=== PATIENT | female | born 1975 | race Caucasian/White ===

== ENCOUNTER 2018-10-05 12:24 | Emergency (ER) | payer BC ==
[2018-10-05 12:43] VITALS: O2SAT 100
[2018-10-05] MEDS ORDERED: TORAdol 30 mg Injection IV ONE (12:49)
[2018-10-05] MEDS ORDERED: Sodium Chloride 0.9% 1000 ML 1,000 ML IV STA (12:49)
--- NOTE | 2018-10-05 12:58 | ERPHSYRPT ---
- History of Present Illness Time Seen by Provider: 10/05/18 12:45 Historian: patient Exam Limitations: no limitations Patient Subjective Stated Complaint: left flank pain that radiates to the front , left chest pain that radiates down to the lower abdomen Triage Nursing Assessment: Pt c/o of pain in the left flank that radiates around to the upper and lower left abdomen, pain in upper left chest that radiates down to her left side of abdomen, rates pain 8/10, denies vomiting, has nausea, denies urination or bowel problems, bowel sounds heard in all 4 quadrants, pain with palpatation Physician History: 43-year-old white female arrives with complaint of left flank pain radiating to the left lower abdominal quadrant symptoms off and on for a week also states today she is having sharp pains in her left upper chest radiating down her left side to her abdomen into her left arm. No shortness of breath, positive nausea no vomiting no urinary symptoms. 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 Social history former smoker occasional alcohol denies illicit drugs. Timing/Duration: week(s) (abdominal pain for a week, sharp chest pain since today) Activities at Onset: none Quality: sharpness, stabbing Abdominal Pain Onset Location: LUQ, flank (Left flank), other (left chest radiating to abdomen and left arm) Pain Radiation: LLQ, flank (left flank) Severity of Pain-Max: moderate Severity of Pain-Current: moderate Modifying Factors: Improves With: nothing Associated Symptoms: back (pain left flank), chest pain (pain sharp worse with breathing left chest radiating to left abdomen and left arm), nausea, No diaphoresis, No diarrhea, No fever/chills, No fatigue, No heartburn, No loss of appetite, No neck pain, No rash, No shortness of breath, No syncope, No vomiting , No weakness Previous symptoms: no prior history Allergies/Adverse Reactions: codeine [Codeine] Allergy (Verified 10/05/18 12:45) Nausea Hx Tetanus, Diphtheria Vaccination/Date Given: Yes Hx Influenza Vaccination/Date Given: No Hx Pneumococcal Vaccination/Date Given: No - Review of Systems Constitutional: No Fever, No Chills Eyes: No Symptoms Ears, Nose, & Throat: No Symptoms Respiratory: No Cough, No Dyspnea Cardiac: Chest Pain (sharp left chest pain radiating to left abdomen and left arm worse with breathing) Abdominal/Gastrointestinal: Abdominal Pain (Left flank pain radiating to left abdomen ), Nausea, No Vomiting, No Diarrhea, No Constipation, No Hematemesis, No Hematochezia, No Melena, No Dysphagia, No Appetite Changes Genitourinary Symptoms: No Dysuria Musculoskeletal: Back Pain (left flank pain), No Arthralgias, No Neck Pain, No Deformity, No Fall, No Injury, No Joint Redness, No Joint Pain, No Joint Swelling, No Myalgias, No Other Skin: No Rash Neurological: No Dizziness, No Focal Weakness, No Sensory Changes Psychological: No Symptoms Endocrine: No Symptoms Hematologic/Lymphatic: No Symptoms All Other Systems: Reviewed and Negative - Past Medical History Pertinent Past Medical History: Yes ENT History: Other Cardiac History: No Pertinent History Respiratory History: No Pertinent History Endocrine Medical History: No Pertinent History Musculoskeletal History: No Pertinent History GI Medical History: No Pertinent History History: No Pertinent History Psycho-Social History: No Pertinent History Female Reproductive Disorders: Endometriosis Other Medical History: 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 laparoscopy. nose surgery. bilateral ear surgery- tubes - Social History Smoking Status: Former smoker Exposure to second hand smoke: Yes Drug Use: none Patient Lives Alone: No Significant Family History: AORTIC ANEURYSMS - Female History Hx Now: No (tubal) - Nursing Vital Signs Nursing Vital Signs: Initial Vital Signs Temperature 97.6 F 10/05/18 12:29 Pulse Rate 69 10/05/18 12:29 Blood Pressure 114/81 10/05/18 12:29 O2 Sat by Pulse Oximetry 100 10/05/18 12:29 Pain Scale Pain Intensity 8 - Physical Exam General Appearance: no apparent distress, alert Eye Exam: PERRL/EOMI, eyes nml inspection Ears, Nose, Throat Exam: normal ENT inspection, pharynx normal, moist mucous membranes Neck Exam: normal inspection, non-tender, supple, full range of motion Respiratory Exam: normal breath sounds, lungs clear, No respiratory distress Cardiovascular Exam: regular rate/rhythm, normal heart sounds Gastrointestinal/Abdomen Exam: soft, normal bowel sounds, tenderness (left lower quadrant tenderness), No distention, No mass, No guarding, No ecchymosis, No pulsatile mass, No rebound, No hernia, No hepatomegaly, No organomegaly, No splenomegaly Back Exam: normal inspection, normal range of motion, No CVA tenderness, No vertebral tenderness Extremity Exam: normal inspection, normal range of motion, pelvis stable Neurologic Exam: alert, oriented x 3, cooperative, 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 74 bpm normal axis, no acute ST or T wave changes noted. No old EKG for comparison.) - Radiology Exams Chest X-ray Interpretation: Discussed w/ radiologist (chest x-ray: Minimal lingular fibrosis/scarring. Remaining heart, lungs, and bony thorax normal.) - CT Exams Abdomen/Pelvis CT Interpretation: Discussed w/radiologist (CT abdomen and pelvis: Impression: 1. 2.5 cm right ovary cyst and again splenomegaly. 2. Remaining CT abdomen and pelvis without contrast is negative.) Ordered Tests: Active Orders 24 hr Category Date Time Status EKG-ER Only STAT Care 10/05/18 13:02 Active IV Insertion STAT Care 10/05/18 12:49 Active ABDOMEN AND PELVIS W/0 CONTRAS [CT] Stat Exams 10/05/18 13:31 Taken CHEST 1 VIEW (PORTABLE) Stat Exams 10/05/18 12:50 Completed AMYLASE Stat Lab 10/05/18 13:28 Completed CBC W DIFF Stat Lab 10/05/18 13:28 Completed CMP Stat Lab 10/05/18 13:28 Completed D-DIMER QUANTITATION Stat Lab 10/05/18 13:28 Completed HCG QUALITATIVE,SERUM Stat Lab 10/05/18 Completed LIPASE Stat Lab 10/05/18 13:28 Completed NT PRO BNP Stat Lab 10/05/18 13:28 Completed PROTIME WITH INR Stat Lab 10/05/18 13:28 Completed PTT Stat Lab 10/05/18 13:28 Completed TROPONIN Q3H Lab 10/05/18 13:28 Completed TROPONIN Q3H Lab 10/05/18 16:00 Ordered TROPONIN Q3H Lab 10/05/18 19:00 Ordered TROPONIN Q3H Lab 10/05/18 22:00 Ordered TROPONIN Q3H Lab 10/06/18 01:00 Ordered UA W/RFX UR CULTURE Stat Lab 10/05/18 13:28 Completed Medication Summary Discontinued Medications Generic Name Dose Route Start Last Admin Trade Name Freq PRN Reason Stop Dose Admin Sodium Chloride 1,000 mls @ 999 mls/hr 10/05/18 12:49 10/05/18 13:36 Sodium Chloride 0.9% 1000 Ml IV 10/05/18 13:49 999 mls/hr .Q1H1M STA Administration Sodium Chloride Confirm 10/05/18 13:31 Sodium Chloride 0.9% 1000 Ml Administered 10/05/18 13:32 Dose 1,000 mls @ ud .ROUTE .STK-MED ONE Ketorolac Tromethamine 30 mg 10/05/18 12:49 10/05/18 13:36 Toradol 30 Mg Injection IV 10/05/18 12:50 30 mg STAT ONE Administration Ketorolac Tromethamine Confirm 10/05/18 13:31 Toradol 30 Mg Injection Administered 10/05/18 13:32 Dose 30 mg .ROUTE .STK-MED ONE Lab/Rad Data: Laboratory Result Diagrams 10/05/18 13:28 10/05/18 13:28 Laboratory Results 10/05/18 10/05/18 10/05/18 Range/Units Unknown 13:28 13:28 WBC (4.0-10.5) K/mm3 RBC (4.1-5.4) M/mm3 Hgb (12.0-16.0) gm/dl Hct (35-47) % MCV (78-100) fl MCH (26-32) pg MCHC (32-36) g/dl RDW (11.5-14.0) % Plt Count (150-450) K/mm3 MPV (6-9.5) fl Gran % (36.0-66.0) % Eos # (Auto) (0-0.5) Absolute Lymphs (auto) (1.0-4.6) Absolute Monos (auto) (0.0-1.3) Lymphocytes % (24.0-44.0) % Monocytes % (0.0-12.0) % Eosinophils % (0.00-5.0) % Basophils % (0.0-0.4) % Absolute Granulocytes (1.4-6.9) Basophils # (0-0.4) PT (9.95-12.35) SECONDS INR (0.8-3.0) APTT (25.3-37.0) SECONDS D-Dimer (215-500) ng/mL Sodium (137-145) mmol/L Potassium (3.5-5.1) mmol/L Chloride (98-107) mmol/L Carbon Dioxide (22-30) mmol/L Anion Gap (5-15) MEQ/L BUN (7-17) mg/dL Creatinine (0.52-1.04) mg/dL Estimated GFR ML/MIN Glucose (74-106) mg/dL Calcium (8.4-10.2) mg/dL Total Bilirubin (0.2-1.3) mg/dL AST (14-36) U/L ALT (0-35) U/L Alkaline Phosphatase (38-126) U/L Troponin I < 0.012 (0.000-0.034) ng/mL NT-Pro-B Natriuret Pep (0-450) pg/mL Serum Total Protein (6.3-8.2) g/dL Albumin (3.5-5.0) g/dL Amylase (30-110) U/L Lipase (23-300) U/L Serum , Qual NEGATIVE (Negative) Urine Color STRAW (YELLOW) Urine Appearance CLEAR (CLEAR) Urine pH 6.0 (5-6) Ur Specific [place] 1.006 (1.005-1.025) Urine Protein NEGATIVE (Negative) Urine Ketones NEGATIVE (NEGATIVE) Urine Blood MODERATE (0-5) Michael/ul Urine Nitrite NEGATIVE (NEGATIVE) Urine Bilirubin NEGATIVE (NEGATIVE) Urine Urobilinogen NEGATIVE (0-1) mg/dL Ur Leukocyte Esterase NEGATIVE (NEGATIVE) Urine WBC (Auto) NONE (0-5) /HPF Urine RBC (Auto) 0-2 (0-2) /HPF U Epithel Cells (Auto) RARE (FEW) /HPF Urine Bacteria (Auto) NONE (NEGATIVE) /HPF Urine Mucus (Auto) SLIGHT (NEGATIVE) /HPF Urine Culture Reflexed NO (NO) Urine Glucose NEGATIVE (NEGATIVE) mg/dL 10/05/18 10/05/18 10/05/18 Range/Units 13:28 13:28 13:28 WBC 8.1 (4.0-10.5) K/mm3 RBC 4.82 (4.1-5.4) M/mm3 Hgb 14.8 (12.0-16.0) gm/dl Hct 45.0 (35-47) % MCV 93.4 (78-100) fl MCH 30.7 (26-32) pg MCHC 32.9 (32-36) g/dl RDW 12.8 (11.5-14.0) % Plt Count 344 (150-450) K/mm3 MPV 10.4 H (6-9.5) fl Gran % 64.4 (36.0-66.0) % Eos # (Auto) 0.08 (0-0.5) Absolute Lymphs (auto) 1.95 (1.0-4.6) Absolute Monos (auto) 0.83 (0.0-1.3) Lymphocytes % 24.1 (24.0-44.0) % Monocytes % 10.3 (0.0-12.0) % Eosinophils % 1.0 (0.00-5.0) % Basophils % 0.2 (0.0-0.4) % Absolute Granulocytes 5.20 (1.4-6.9) Basophils # 0.02 (0-0.4) PT 12.1 (9.95-12.35) SECONDS INR 1.04 (0.8-3.0) APTT 25.1 L (25.3-37.0) SECONDS D-Dimer 231 (215-500) ng/mL Sodium 139 (137-145) mmol/L Potassium 3.7 (3.5-5.1) mmol/L Chloride 102 (98-107) mmol/L Carbon Dioxide 29 (22-30) mmol/L Anion Gap 12.2 (5-15) MEQ/L BUN 11 (7-17) mg/dL Creatinine 0.70 (0.52-1.04) mg/dL Estimated GFR > 60.0 ML/MIN Glucose 109 H (74-106) mg/dL Calcium 9.8 (8.4-10.2) mg/dL Total Bilirubin 1.00 (0.2-1.3) mg/dL AST 29 (14-36) U/L ALT 29 (0-35) U/L Alkaline Phosphatase 53 (38-126) U/L Troponin I (0.000-0.034) ng/mL NT-Pro-B Natriuret Pep 24.4 (0-450) pg/mL Serum Total Protein 8.3 H (6.3-8.2) g/dL Albumin 4.8 (3.5-5.0) g/dL Amylase 44 (30-110) U/L Lipase 41 (23-300) U/L Serum , Qual (Negative) Urine Color (YELLOW) Urine Appearance (CLEAR) Urine pH (5-6) Ur Specific [place] (1.005-1.025) Urine Protein (Negative) Urine Ketones (NEGATIVE) Urine Blood (0-5) Michael/ul Urine Nitrite (NEGATIVE) Urine Bilirubin (NEGATIVE) Urine Urobilinogen (0-1) mg/dL Ur Leukocyte Esterase (NEGATIVE) Urine WBC (Auto) (0-5) /HPF Urine RBC (Auto) (0-2) /HPF U Epithel Cells (Auto) (FEW) /HPF Urine Bacteria (Auto) (NEGATIVE) /HPF Urine Mucus (Auto) (NEGATIVE) /HPF Urine Culture Reflexed (NO) Urine Glucose (NEGATIVE) mg/dL - Progress Progress: improved Progress Note: 10/05/18 14:22 43-year-old white female arrives with complaint of pain in her left flank radiating to her left lower quadrant for a week. Patient also states she had some sharp left upper chest pain radiating down to her abdomen and down her left arm earlier this morning Patient states she did have worsening with breathing with these pains. Patient is tender with palpation in the left lower quadrant Patient's vitals are stable patient is given Toradol 30 mg IV patient given aspirin 325 by mouth patient's d-dimer, troponin, chemistry, CBC all essentially normal urinalysis is essentially normal. EKG sinus rhythm 74 bpm normal axis no acute ST or T wave changes. Chest x-ray no acute disease process noted. CT of the abdomen and pelvis impression 1. 2.5 cm right ovarian cyst and again splenomegaly. 2. Remaining CT abdomen and pelvis without contrast is negative. Patient appears to be stable I have offered to have her stay for repeat troponins she does not want to do this. Will go ahead and write for [place] for pain . Patient did have splenomegaly at last CT the spleen is actually somewhat smaller today. Will write for Slovan for pain, plenty of fluids clear fluids only 24 hours of abdominal pain. Patient to contact Dr. Lange for follow-up. - Departure Time of Disposition: 14:25 Departure Disposition: Home Clinical Impression: Left flank pain, Non-cardiac chest pain Abdominal pain Qualifiers: Abdominal location: left lower quadrant Qualified Code(s): R10.32 - Left lower quadrant pain Condition: Fair Critical Care Time: No Referrals: ANEESH LANGE [Primary Care Provider] - Additional Instructions: Return home. Plenty of fluids clear fluids only 24-48 hours if abdominal pain. Slovan as prescribed. Follow-up with Dr. lange. Call to arrange follow-up appointment. Return for acute distress or for severe symptoms. Prescriptions: Hydrocodone/Acetaminophen [Slovan 5-325 Tablet] 1 tab PO Q4-6HPRN PRN #12 tablet MDD 6 tablets PRN Reason: Pain
--- NOTE | 2018-10-05 13:13 | XRAY ---
Indication: Left chest pain. Body aches. Comparison: None Portable chest demonstrates minimal lingular fibrosis/scarring. Remaining heart, lungs, and bony thorax normal.
[2018-10-05] MEDS ORDERED: TORAdol 30 mg Injection ONE (13:31)
[2018-10-05] MEDS ORDERED: Sodium Chloride 0.9% 1000 ML 1,000 ML ONE (13:31)
[2018-10-05 13:41] LABS: Appearance CLEAR (CLEAR); Bilirubin NEGATIVE (NEGATIVE); Blood MODERATE Ery/ul (0-5); Glucose NEGATIVE (NEGATIVE); Ketones NEGATIVE (NEGATIVE); Leukocyte Esterase NEGATIVE (NEGATIVE); Nitrite NEGATIVE (NEGATIVE); Protein,Urine Dip NEGATIVE (Negative); Specific Gravity 1.006 (1.005-1.025); Urobilinogen NEGATIVE mg/dL (0-1)
[2018-10-05 13:42] LABS: INR 1.04 (0.8-3.0)
[2018-10-05 13:45] LABS: PTT 25.1 SECONDS (25.3-37.0)
[2018-10-05 13:56] LABS: ALBUMIN 4.8 g/dL (3.5-5.0); ALKALINE PHOSPHATASE 53 U/L (38-126); AMYLASE 44 U/L (30-110); ANION GAP 12.2 MEQ/L (5-15); BLOOD UREA NITROGEN 11 mg/dL (7-17); CHLORIDE 102 mmol/L (98-107); Calcium 9.8 mg/dL (8.4-10.2); Carbon Dioxide 29 mmol/L (22-30); Glucose 109 mg/dL (74-106); LIPASE 41 U/L (23-300); NT PRO BNP 24.4 pg/mL (0-450); Potassium 3.7 mmol/L (3.5-5.1); SGOT/AST 29 U/L (14-36); SGPT/ALT 29 U/L (0-35); SODIUM 139 mmol/L (137-145); Total Protein 8.3 g/dL (6.3-8.2)
[2018-10-05 13:57] LABS: BASOPHIL % 0.2 % (0.0-0.4); Basophil (Absolute #) 0.02 (0-0.4); Eosinophil (Absolute #) 0.08 (0-0.5); Granulocytes % 64.4 % (36.0-66.0); Hemoglobin 14.8 gm/dl (12.0-16.0); Lymphocyte (Absolute #) 1.95 (1.0-4.6); Lymphocytes % 24.1 % (24.0-44.0); Mean Cell Volume 93.4 fl (78-100); Mean Corpuscular Hemoglobin 30.7 pg (26-32); Mean Corpuscular Hgb Concent. 32.9 g/dl (32-36); Mean Platelet Volume 10.4 fl (6-9.5); Monocyte (Absolute #) 0.83 (0.0-1.3); Monocytes % 10.3 % (0.0-12.0); Platelet Count 344 K/mm3 (150-450); Red Blood Count 4.82 M/mm3 (4.1-5.4); Red Cell Distribution Width 12.8 % (11.5-14.0); White Blood Count 8.1 K/mm3 (4.0-10.5)
[2018-10-05] MEDS ORDERED: BABY ASPIRIN 81 MG CHEW PO ONE (14:21)
--- NOTE | 2018-10-05 14:24 | XRAY ---
Indication: Left lower/flank pain 1 week. Multiple contiguous axial images obtained through the abdomen and pelvis without contrast as ordered. Comparison: October 31, 2012. Lung bases are clear. Heart is not enlarged. Noncontrasted stomach and bowel loops appear nonobstructed. Normal appendix. Mild fecal debris in the ascending and transverse colon. 2.4 cm right ovary cyst. No free fluid/air. Spleen remains enlarged today measuring 13.6 cm in greatest axial dimension, previously 15 cm. Remaining liver, gallbladder, pancreas, spleen, adrenal glands, kidneys, ureters, bladder, uterus, and aorta appear unremarkable for noncontrast exam. Osseous structures intact. No ventral or inguinal hernias. Impression: 1. 2.4 cm right ovary cyst and again splenomegaly. 2. Remaining CT abdomen/pelvis without contrast exam is negative. CT DI 17.37
[2018-10-05 14:45] VITALS: BP 112/83; PULSE 63
== END 2018-10-05 14:47 | disposition home or self-care (01) ==
LOC: ED 12:24
DX: R10.12 Left upper quadrant pain (principal); R10.32 Left lower quadrant pain; R07.89 Other chest pain; N83.201 Unspecified ovarian cyst, right side
CPT/HCPCS: 36415; 71045; 74176; 80053; 81001; 81025; 82150; 83690; 83880; 84484; 85025; 85379; 85610; 85730; 93005; 96360; 96374; 99284; J1885; A9270-GY

== ENCOUNTER 2019-04-15 15:54 | Emergency (ER) | payer BC ==
[2019-04-15] MEDS ORDERED: Norflex 60 MG/2 ML IM ONE (17:23)
[2019-04-15] MEDS ORDERED: TORAdol 30 mg Injection IM ONE (17:23)
--- NOTE | 2019-04-15 17:27 | ERPHSYRPT ---
- History of Present Illness Time Seen by Provider: 04/15/19 17:14 Source: patient Exam Limitations: no limitations Patient Subjective Stated Complaint: STATES HAVING PAIN IN RIGHT HIP AND DOWN RIGHT LEG FOR SEVEN DAYS. TODAY IS HAVING TINGLING TO RIGHT TOES. DENIES ANY INJURY Triage Nursing Assessment: AMBULATED TO ROOM PER SELF WITH SOME WEAKNESS NOTED TO RIGHT LEG. GOOD PEDAL PULSE, RIGHT FOOT WARM, NORMAL COLOR. Physician History: Patient started x/o pain in her right hip area 3 days ago, radiating to her leg , noticed toe numbness yesterday, denies weakness, able to walk with some pain. She denies fall, any injury, lifting, no abdominal pain, fever, nausea, other complaints, no loss of bladder or bowel control. Timing/Duration: day(s) (3) Method of Injury: unknown Quality: sharp Back Pain Location: lumbar spine Back Pain Radiation: buttocks Severity of Pain-Max: severe Severity of Pain-Current: severe Modifying Factors: Improves With: immobilization, movement Associated Symptoms: denies symptoms Previous symptoms: no prior history Allergies/Adverse Reactions: acetaminophen [From [place]] Allergy (Verified 04/15/19 16:18) codeine [Codeine] Allergy (Verified 04/15/19 16:17) Nausea hydrocodone [From [place]] Allergy (Verified 04/15/19 16:18) Hx Tetanus, Diphtheria Vaccination/Date Given: Yes Hx Influenza Vaccination/Date Given: No Hx Pneumococcal Vaccination/Date Given: No - Review of Systems Constitutional: No Symptoms Respiratory: No Symptoms Cardiac: No Symptoms Abdominal/Gastrointestinal: No Symptoms Genitourinary Symptoms: No Symptoms Musculoskeletal: Back Pain, Other (right hip and leg pain) Skin: No Symptoms Neurological: Parasthesia All Other Systems: Reviewed and Negative - Past Medical History Pertinent Past Medical History: Yes ENT History: Other Cardiac History: No Pertinent History Respiratory History: No Pertinent History Endocrine Medical History: No Pertinent History Musculoskeletal History: No Pertinent History GI Medical History: No Pertinent History History: No Pertinent History Psycho-Social History: No Pertinent History Female Reproductive Disorders: Endometriosis Other Medical History: 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 laparoscopy. nose surgery. bilateral ear surgery- tubes - Social History Smoking Status: Never smoker Exposure to second hand smoke: No Drug Use: none Patient Lives Alone: No Significant Family History: AORTIC ANEURYSMS - Female History Hx Last Menstrual Period: 03/20/19 Hx Now: No - Nursing Vital Signs Nursing Vital Signs: Initial Vital Signs Temperature 98.2 F 04/15/19 16:12 Pulse Rate 83 04/15/19 16:12 Respiratory Rate 16 04/15/19 16:12 Blood Pressure 111/72 04/15/19 16:12 O2 Sat by Pulse Oximetry 98 04/15/19 16:12 Pain Scale Pain Intensity 8 - Physical Exam General Appearance: no apparent distress Eye Exam: eyes nml inspection Ears, Nose, Throat Exam: normal ENT inspection, moist mucous membranes Neck Exam: normal inspection, non-tender, supple Respiratory Exam: normal breath sounds, lungs clear Cardiovascular Exam: regular rate/rhythm, normal heart sounds, normal peripheral pulses Gastrointestinal Exam: soft, normal bowel sounds, No tenderness, No distention, No mass, No guarding, No rebound, No hernia, No organomegaly Back Exam: normal inspection, other (right paralumbar and scaitica area tenderness, no severe spasms, no swelling or skin changes.), No CVA tenderness, No vertebral tenderness Extremity Exam: normal inspection, normal range of motion, other (straight leg raising is negative on both sides), No calf tenderness, No geetha's sign, No pedal edema Peripheral Pulses: dorsalis-pedis (R): 2+, dorsalis-pedis (L): 2+ Neurologic Exam: alert, oriented x 3, cooperative, normal mood/affect, sensation nml, No motor deficits Skin Exam: normal color, warm, dry, No rash, No petechiae, No cyanosis, No diaphoresis Lymphatic Exam: No adenopathy SpO2 Interpretation: normal SpO2: 98 O2 Delivery: Room Air - Course Nursing assessment & vital signs reviewed: Yes - Radiology Exams Right Hip X-ray Interpretation: Interpreted by me, Negative L-Spine X-ray Interpretation: Interpreted by me, Negative, Other (straightened L-spine) Ordered Tests: Active Orders 24 hr Category Date Time Status HIP UNI (2V) INCL PEL IF DONE Stat Exams 04/15/19 17:22 Taken LUMBAR LIMITED (2 OR 3 VIEWS) Stat Exams 04/15/19 17:21 Taken UA W/RFX UR CULTURE Stat Lab 04/15/19 18:19 Completed Medication Summary Discontinued Medications Generic Name Dose Route Start Last Admin Trade Name Anusha PRN Reason Stop Dose Admin Fentanyl Citrate 75 mcg 04/15/19 19:00 Sublimaze 100 Mcg/2 Ml IV 04/15/19 19:01 STAT ONE Ketorolac Tromethamine 60 mg 04/15/19 17:23 04/15/19 17:42 Toradol 30 Mg Injection IM 04/15/19 17:24 60 mg STAT ONE Administration Ketorolac Tromethamine Confirm 04/15/19 17:39 Toradol 30 Mg Injection Administered 04/15/19 17:40 Dose 60 mg .ROUTE .STK-MED ONE Orphenadrine Citrate 60 mg 04/15/19 17:23 04/15/19 17:42 Norflex 60 Mg/2 Ml IM 04/15/19 17:24 60 mg STAT ONE Administration Orphenadrine Citrate Confirm 04/15/19 17:39 Norflex 60 Mg/2 Ml Administered 04/15/19 17:40 Dose 60 mg .ROUTE .STK-MED ONE Promethazine HCl 25 mg 04/15/19 19:00 Phenergan 25 Mg Inj IM 04/15/19 19:01 STAT ONE Lab/Rad Data: Laboratory Results 04/15/19 Range/Units 18:19 Urine Color YELLOW (YELLOW) Urine Appearance CLEAR (CLEAR) Urine pH 5.0 (5-6) Ur Specific [place] 1.024 (1.005-1.025) Urine Protein NEGATIVE (Negative) Urine Ketones NEGATIVE (NEGATIVE) Urine Blood SMALL (0-5) Michael/ul Urine Nitrite NEGATIVE (NEGATIVE) Urine Bilirubin NEGATIVE (NEGATIVE) Urine Urobilinogen NEGATIVE (0-1) mg/dL Ur Leukocyte Esterase NEGATIVE (NEGATIVE) Urine WBC (Auto) NONE (0-5) /HPF Urine RBC (Auto) 3-5 (0-2) /HPF U Epithel Cells (Auto) NONE (FEW) /HPF Urine Bacteria (Auto) NONE (NEGATIVE) /HPF Urine Mucus (Auto) SLIGHT (NEGATIVE) /HPF Urine Culture Reflexed NO (NO) Urine Glucose NEGATIVE (NEGATIVE) mg/dL - Progress Progress: improved Progress Note: 04/15/19 19:02 Pt was given IM Toradol, Fentanyl and Phenergan discussed her X ray findings, and instructions given to rest x 2-3 days, apply moist heat to her back, and follow up with her physician next week. Counseled pt/family regarding: lab results, diagnosis, need for follow-up, rad results - Departure Departure Disposition: Home Clinical Impression: Sciatica Qualifiers: Laterality: right Qualified Code(s): M54.31 - Sciatica, right side Condition: Stable Critical Care Time: No Referrals: ANEESH RAINEY [Primary Care Provider] - Instructions: Low Back Pain (DC), Sciatica (DC) Additional Instructions: Rest x 2-3 days, apply moist heat to back, and follow up with your physician next week, return if severe pain, sudden leg weakness, loss of strength or loss of bladder, bowel control! Prescriptions: Cyclobenzaprine HCl 10 mg [Cyclobenzaprine 10 MG] 10 mg PO TID #30 tablet Methylprednisolone Packet [Medrol Dosepack] 4 mg PO UD #1 packet Tramadol HCl 50 mg [Ultram 50 mg] 50 mg PO Q6H PRN #15 tablet PRN Reason: Pain
[2019-04-15] MEDS ORDERED: TORAdol 30 mg Injection ONE (17:39)
[2019-04-15] MEDS ORDERED: Norflex 60 MG/2 ML ONE (17:39)
[2019-04-15 18:37] LABS: Appearance CLEAR (CLEAR); Bilirubin NEGATIVE (NEGATIVE); Blood SMALL Ery/ul (0-5); Glucose NEGATIVE (NEGATIVE); Ketones NEGATIVE (NEGATIVE); Leukocyte Esterase NEGATIVE (NEGATIVE); Mucus SLIGHT /HPF (NEGATIVE); Nitrite NEGATIVE (NEGATIVE); Protein,Urine Dip NEGATIVE (Negative); Specific Gravity 1.024 (1.005-1.025); Urobilinogen NEGATIVE mg/dL (0-1)
[2019-04-15] MEDS ORDERED: Phenergan 25 MG INJ IM ONE (19:00)
[2019-04-15] MEDS ORDERED: SUBLIMAZE 100 MCG/2 ML IV ONE (19:00)
[2019-04-15] MEDS ORDERED: Phenergan 25 MG INJ ONE (19:15)
[2019-04-15] MEDS ORDERED: SUBLIMAZE 100 MCG/2 ML ONE (19:15)
[2019-04-15 19:24] VITALS: BP 130/90; PULSE 64; O2SAT 99
--- NOTE | 2019-04-16 08:42 | XRAY ---
Indication: Pain. No known injury. Comparison: None 2 views of the right hip demonstrates a few pelvic phleboliths. No other bony, articular, or soft tissue abnormalities.
--- NOTE | 2019-04-16 08:42 | XRAY ---
Indication: Low back pain. No known injury. Comparison: None 3 views of the lumbar spine demonstrates 5 lumbar vertebral segments in normal alignment with vertebral body heights/disc spaces maintained. Minimal L4-L5 anterior endplate spurring. No other bony, articular, or soft tissue abnormalities.
== END 2019-04-15 19:36 | disposition home or self-care (01) ==
LOC: ED 15:54
DX: M54.31 Sciatica, right side (principal); M25.551 Pain in right hip
CPT/HCPCS: 72100; 73502; 81001; 96372; 99284; J1885; J2360; J2550; J3010